=== PATIENT | male | born 1975 | race Caucasian/White ===

== ENCOUNTER 2016-08-08 09:39 | Emergency (ER) | payer OTHER ==
[~2016-08-08] VITALS: Ht 188 cm; Wt 97.7 kg
[2016-08-08 10:03] VITALS: BP 180/103; PULSE 61; RESP 12; O2SAT 99
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
--- NOTE | 2016-08-08 10:43 | DRSVH ---
PROCEDURE: CT BRAIN WITHOUT CONTRAST ([id number]) INDICATIONS: Stroke TECHNIQUE: Noncontrast 4.5 mm thick angled axial sections acquired from the foramen magnum to the vertex, with c oronal reformats. COMPARISON: None. FINDINGS: Image quality: Excellent. CSF spaces: Basal cisterns are patent. No extra-axial fluid collections. Ventricles are normal in size and shape. Brain: No midline shift. No intracranial masses or hemorrhage. Yarbrough-white matter interface is norm al. Skull and face: Calvarium and visualized facial bones are intact, without suspicious lesions. Sinuses: Visualized sinuses and mastoids are clear. IMPRESSION: No acute intracranial disease process. Dictated by: Katey Oglesby MD, PhD on 08/08/2016 at 10:39 Approved by: Katey Oglesby MD, PhD on 08/08/2016 at 10:41
[2016-08-08 11:26] LABS: BASOPHILS % (AUTO) 0.4 % (0-3); EOSINOPHILS % (AUTO) 0.8 % (0-5); MONOCYTES % (AUTO) 11.9 % (4-12); Mean Corpuscular Hemoglobin 30.6 pg (27.0-35.0); Mean Corpuscular Volume 89.3 fL (81-100); NEUTROPHILS % (AUTO) 56.7 % (40-74); Platelet Count 254 bil/L (150-400)
[2016-08-08 11:39] LABS: INR 0.95 ratio
[2016-08-08 12:15] VITALS: BP 174/96; PULSE 62; RESP 16; O2SAT 99
== END 2016-08-08 12:16 | disposition home or self-care (01) ==
LOC: SED 09:39
DX: H54.61 Unqualified visual loss, right eye, normal vision left eye (principal); R51 Headache